=== PATIENT | male | born 1995 | race Two or more races ===

== ENCOUNTER 2017-01-25 17:57 | Emergency (ER) | payer MEDICAID ==
[~2017-01-25] VITALS: Ht 180.3 cm; Wt 92.9 kg
[2017-01-25 18:12] VITALS: BP 129/77
[2017-01-25] MEDS ORDERED: BACITRACIN ZINC OINT 500U/GM, 0.9 GM ONE (18:52)
[2017-01-25] MEDS ORDERED: DIPH,PERTUSS(ACELL),TET VAC/PF 0.5 ML IM-VACC ONE ×2 (18:58→19:00)
== END 2017-01-25 19:30 | disposition home or self-care (01) ==
LOC: ED 19:25
DX: S41.111A Laceration without foreign body of right upper arm, initial encounter (principal); F17.200 Nicotine dependence, unspecified, uncomplicated; W45.8XXA Other foreign body or object entering through skin, initial encounter; Y93.89 Activity, other specified; Y92.89 Other specified places as the place of occurrence of the external cause; Y99.8 Other external cause status
CPT/HCPCS: 90471; 90715